=== PATIENT | female | born 1980 | race Caucasian/White ===

== ENCOUNTER → 2022-03-25 | Outpatient (CLI) | payer BC ==
[~2022-03-25] VITALS: Ht 175.3 cm; Wt 145.5 kg
[~2022-03-25] MED LIST: CETI10CA PO; DULO30CA49 PO; NF-LAMO200 PO; PANT40TA52 PO
== END | disposition home or self-care (01) ==
LOC: PREOP 05:42
PROVIDERS: ATTEND Otolaryngology Otolaryngology/Facial Plastic Surgery
DX: Z01.818 Encounter for other preprocedural examination (principal)

== ENCOUNTER 2022-04-01 08:10 | Day surgery (SDC) | payer BC, OTHER ==
[2022-04-01] VITALS (11 sets, daily range): BP systolic 104–141; BP diastolic 60–102
[~2022-04-01] VITALS: Ht 175 cm; Wt 145.5 kg
[2022-04-01] MEDS ORDERED: SCOPOLAMINE 1.5 MG (TRANSDERM-SCOP) PATCH TOP ONE (08:30)
[2022-04-01] MEDS ORDERED: ONDANSETRON 4 MG/2 ML (SDV) Z0FRAN IV ONE (08:30)
[2022-04-01] MEDS ORDERED: FAMOTIDINE 20MG/2ML IV (PEPCID) IV ONE (08:30)
[2022-04-01] MEDS ORDERED: LACTATED RINGERS 1,000 ML IV PRN (08:45)
[2022-04-01 08:49] LABS: BASOPHILS % (AUTO) 1 % (0-10); EOSINOPHILS # (AUTO) 0.6 10^3/uL (0.0-0.3); EOSINOPHILS % (AUTO) 8 % (0-10); HEMATOCRIT 38 % (35-52); HEMOGLOBIN 12.6 g/dL (11.5-16.0); LYMPHOCYTES # (AUTO) 2.9 10^3/uL (1.0-4.0); LYMPHOCYTES % (AUTO) 39 % (12-44); MEAN CORPUSCULAR HEMOGLOBIN 29 pg (25-34); MEAN CORPUSCULAR HGB CONC 33 g/dL (32-36); MEAN CORPUSCULAR VOLUME 87 fL (80-99); MONOCYTES # (AUTO) 0.5 10^3/uL (0.0-1.0); MONOCYTES % (AUTO) 6 % (0-12); NEUTROPHILS # (AUTO) 3.4 10^3/uL (1.8-7.8); NEUTROPHILS % (AUTO) 46 % (42-75); PLATELET COUNT 306 10^3/uL (130-400); WHITE BLOOD COUNT 7.4 10^3/uL (4.3-11.0)
[2022-04-01] MEDS ORDERED: fentaNYL INJ 100 MCG/2 ML AMP ONE (08:58)
[2022-04-01] MEDS ORDERED: proPOfol 200 MG/20 ML (DIPRIVAN) VIAL IV ONE (08:58)
[2022-04-01] MEDS ORDERED: PROPOFOL INJECTION 50 ML IV ONE ×4 (08:58→10:15)
[2022-04-01] MEDS ORDERED: ONDANSETRON 4 MG/2 ML (SDV) Z0FRAN ONE (08:58)
[2022-04-01] MEDS ORDERED: MIDAZOLAM 2 MG/2 ML (VERSED) VIAL ONE (08:59)
[2022-04-01 09:00] LABS: POTASSIUM 3.8 MMOL/L (3.6-5.0)
[2022-04-01 09:01] LABS: CALCIUM 8.9 MG/DL (8.5-10.1)
[2022-04-01 09:05] LABS: CREATININE SERUM 0.81 MG/DL (0.60-1.30)
[2022-04-01] MEDS ORDERED: LIDOCAINE/EPI 1%-1:200,000 (XYLOCAINE) 30 ML VIAL ONE (09:05)
--- NOTE | 2022-04-01 09:16 | Progress Note-Pre Operative ---
Pre-Operative Progress Note H&P Reviewed The H&P was reviewed, patient examined and no changes noted. 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
[2022-04-01] MEDS ORDERED: MUPIROCIN 2% OINT 22 GM (BACTROBAN) TUBE ONE (09:51)
[2022-04-01] MEDS ORDERED: BSS 15 ML ONE (09:52)
[2022-04-01] MEDS ORDERED: HYDROcodone/APAP 5 MG/325 MG (LORTAB) TAB PO PRN (10:00)
[2022-04-01] MEDS ORDERED: ACETAMINOPHEN 325 MG TABLET PO PRN (10:00)
--- NOTE | 2022-04-01 10:36 | Progress Note-Post Operative ---
Post-Operative Progess Note Surgeon (s)/Client Relations Associate (s) Surgeon JACI STACY MD Client Relations Associate n/a Pre-Operative Diagnosis Basal Cell Ca of Right Nasal Dorsum Post-Operative Diagnosis same Post-Op Procedure Note Date of Procedure: April 01, 2022 Name of Procedure Performed: Exccision of Basal Cell cArcinoma with INtermediate Repair Description & Findings Description and Findings: n/a Anesthesia Type lma Estimated Blood Loss minimal Packing none. Specimen(s) collected/removed nasal lesio nfor frozen section JACI STACY MD April 01, 2022 10:36
--- NOTE | 2022-04-01 10:49 | Anesthesia-General Post-Op ---
General Patient Condition Mental Status/LOC: Same as Preop Cardiovascular: Satisfactory Nausea/Vomiting: Absent Respiratory: Satisfactory Pain: Controlled Complications: Absent Post Op Complications Complications None Follow Up Care/Instructions Patient Instructions None needed. Anesthesia/Patient Condition Patient Condition Patient is doing well, no complaints, stable vital signs, no apparent adverse anesthesia problems. No complications reported per nursing. CHASITY SMITH CRNA April 01, 2022 10:49
[2022-04-01] MEDS ORDERED: ONDANSETRON 4 MG/2 ML (SDV) Z0FRAN IVP PRN (11:00)
[2022-04-01] MEDS ORDERED: PROMETHAZINE INJ 25 MG/ML (PHENERGAN) AMP IVP ONE (11:00)
[2022-04-01] MEDS ORDERED: MEPERIDINE (DEMEROL) INJ 50 MG/ML IVP ONE (11:00)
[2022-04-01] MEDS ORDERED: morphine INJ 10 MG/ML 1ML (SYR OR VIAL) IVP ONE (11:00)
[2022-04-01] MEDS ORDERED: ACHD5005 PO (11:43)
[2022-04-01] MEDS ORDERED: CEPH500T PO (11:43)
== END 2022-04-01 12:38 ==
LOC: SDC 08:10
PROVIDERS: ATTEND Otolaryngology Otolaryngology/Facial Plastic Surgery
DX: C44.311 Basal cell carcinoma of skin of nose (principal); J45.909 Unspecified asthma, uncomplicated; E66.9 Obesity, unspecified; Z68.42 Body mass index [BMI] 45.0-49.9, adult
CPT/HCPCS: 36415; 80048; 84703; 85025; 87081; 88305

== ENCOUNTER → 2022-11-16 | Outpatient (CLI) | payer BC ==
[~2022-11-16] MED LIST changes: +ACHD5005 PO; +CEPH500T PO
--- NOTE | 2022-11-16 18:36 | Diagnostic Imaging Report ---
Indication: Left leg pain. Time of Exam: 5:31 PM 2 views of the left tibia and fibula were obtained. Alignment at the knee and ankle is normal. The tibia and fibula are intact. No fractures are seen. Soft tissues are unremarkable. Impression: No acute abnormality is detected. Dictated by: Dictated on workstation # [id number]
== END ==
LOC: RAD FS 17:09
PROVIDERS: ATTEND Nurse Practitioner Family
DX: M79.605 Pain in left leg (principal)
CPT/HCPCS: 73590

== ENCOUNTER → 2022-11-19 | Outpatient (CLI) | payer BC | LOC: ORTHO 09:03 | PROVIDERS: ATTEND Orthopaedic Surgery | DX: S93.402A Sprain of unspecified ligament of left ankle, initial encounter (principal); S80.12XA Contusion of left lower leg, initial encounter | CPT/HCPCS: 99203 ==